=== PATIENT | female | born 1990 | race African-American/Black ===

== ENCOUNTER 2020-05-30 20:58 | Emergency (ER) | payer OTHER ==
[2020-05-30 21:11] VITALS: BP 133/83
[2020-05-30 23:04] LABS: RAPID STREP SCREEN Negative (Negative)
--- NOTE | 2020-05-30 23:10 | ED Physician Documentation ---
History of Present Illness - Stated complaint Stated Complaint: CHILLS, BODY ACHE - Chief complaint Chief Complaint: Heent - History obtained from History obtained from: Patient - History of Present Illness Timing: How many days ago (2) Improved by: no ameliorating factors Worsened by: no exacerbating factors - Additonal information Additional information: c/o 2 days of chills, frontal sinus congestion, sore throat. denies fever, denies cough, denies dyspnea Review of Systems Constitutional: denies: Fever, Myalgias, Sweats Ears: denies: Ear pain Nose: reports: Congestion, Sinus pressure / pain. denies: Rhinorrhea / runny nose Throat: reports: Sore throat Respiratory: denies: Dyspnea, Cough GI: denies: Abdominal Pain : denies: Dysuria, Frequency PD PAST MEDICAL HISTORY - Past Medical History Past Medical History: No - Past Surgical History Past Surgical History: No - Allergies Allergies/Adverse Reactions: Allergies Allergy/AdvReac Type Severity Reaction Status Date / Time No Known Drug Allergies Allergy Verified 05/30/20 21:10 - Social History Does the pt smoke?: No Smoking Status: Never smoker Does the pt have substance abuse?: No - Immunizations Immunizations are current?: Yes PD ED PE NORMAL - Vitals Vital signs reviewed: Yes - General General: Alert and oriented X 3, No acute distress, Well developed/nourished - HEENT HEENT: Moist mucous membranes, Other (mild posterior oropharyngeal erythema with trace bilateral thin film of exudate) - Neck Neck: Supple, no meningeal sign - Respiratory Respiratory: No respiratory distress, Clear bilaterally Results - Vitals Vitals: Oxygen O2 Source Room air - Labs Labs: Microbiology 05/30/20 22:50 Group A Strep Throat Culture - Preliminary Throat CULTURE IN PROGRESS. RESULTS TO FOLLOW. Laboratory Tests 05/30/20 22:50 Group A Strep Rapid Negative PD MEDICAL DECISION MAKING - ED course Complexity details: reviewed results, considered differential, d/w patient ED course: rapid strep negative. signs/symptoms suggestive of viral URI (pharyngitis, sinusitis). further emergent testing not indicated at this time Departure - Departure Disposition: 01 Home, Self Care Clinical Impression: Pharyngitis, Sinusitis Condition: Good Instructions: ED Pharyngitis Viral Report Pending, ED Sinusitis No Abx Forms: Activity restrictions Discharge Date/Time: 05/30/20 23:42
== END 2020-05-30 23:42 | disposition home or self-care (01) ==
LOC: ED 20:58
DX: J02.9 Acute pharyngitis, unspecified (principal); J32.9 Chronic sinusitis, unspecified
CPT/HCPCS: 87070; 87430; 99282; 99283